=== PATIENT | female | born 1990 | race American Indian/Alaskan Native ===

== ENCOUNTER 2018-01-08 08:44 | Emergency (ER) | payer SELFPAY ==
[2018-01-08 09:08] VITALS: BP 126/55
[2018-01-08] MEDS ORDERED: MOTRIN PO ONE (12:38)
--- NOTE | 2018-01-08 12:40 | Emergency Department Report ---
Blank Doc - Documentation Documentation: Patient is a 27-year-old Portuguese female who is presenting with right-sided pleuritic chest discomfort. Patient states that the pain started as a general soreness and now has sharp pain whenever she breathes. Patient denies any recent cough cold congestion, nausea vomiting, or abdominal pain. Patient denies having any cold symptoms in the last month. Patient's had no long recent travel. The patient will be sent for chest x-ray and a d-dimer will be done as well rule out PE.
--- NOTE | 2018-01-08 13:06 | XRay Report ---
ROUTINE CHEST, TWO VIEWS: HISTORY: Pleuritic chest pain. The trachea, heart, mediastinal contour, lung mix and bony thorax are unremarkable. IMPRESSION: Unremarkable chest x-ray.
[2018-01-08 15:30] LABS: Basophils % (Auto) 0.2 % (0.0-1.8); Eosinophils # (Auto) 0.2 K/mm3 (0.0-0.4); Eosinophils % (Auto) 2.1 % (0.0-4.3); Hematocrit 35.6 % (30.3-42.9); Hemoglobin 11.4 gm/dl (10.1-14.3); Lymphocytes # (Auto) 2.8 K/mm3 (1.2-5.4); Lymphocytes % (Auto) 32.8 % (13.4-35.0); Mean Corpuscular HGB Conc 32 % (30-34); Mean Corpuscular Hemoglobin 27 pg (28-32); Mean Corpuscular Volume 84 fl (79-97); Monocytes # (Auto) 0.9 K/mm3 (0.0-0.8); Monocytes % (Auto) 10.6 % (0.0-7.3); Platelet Count 180 K/mm3 (140-440); Red Blood Count 4.22 M/mm3 (3.65-5.03); Red Cell Distribution Width 13.6 % (13.2-15.2)
[2018-01-08 15:40] LABS: BUN/Creatinine Ratio 16; Blood Urea Nitrogen 11 mg/dL (7-17); Calcium 8.7 mg/dL (8.4-10.2); Hemolysis Index 11
--- NOTE | 2018-01-08 16:33 | Emergency Department Report ---
ED General Adult HPI - General Chief complaint: Pain General Stated complaint: BERNY/SHARP PAIN UNDER RT RIB Time Seen by Provider: 01/08/18 12:30 Source: patient Mode of arrival: Ambulatory Limitations: No Limitations - History of Present Illness Initial comments: 27-year-old female past medical history eczema presents with complaint of 2 days of right-sided rib cage discomfort. Slightly worse when she takes deep breath. Patient is awake alert and oriented 3 fully lucid not in acute distress. Denies any personal history of PE or DVT. Denies any recent long distance travel. Pointing to the right side chest and states that it hurts when she touches it deeply or takes a deep breath. Denies any recent falls or trauma to this area. No reports of rash. Deneis any palpitation or rash on chest or flank. Onset/Timin -: days(s) Location: chest Severity scale (0 -10): 5 Quality: sharp Consistency: intermittent Improves with: none Worsens with: none Associated Symptoms: chest pain Treatments Prior to Arrival: none - Related Data Previous Rx's Medication Instructions Recorded Last Taken Type Triamcinolone 0.1% [Kenalog 0.1% 1 applic TP TID #1 tube 05/08/13 Unknown Rx CREAM] Triamcinolone 0.1% [Kenalog 0.1% 1 applic TP BID #80 gram 05/22/13 Unknown Rx CREAM] Amoxicillin/K Clav Tab [Augmentin 1 tab PO BID #20 tablet 06/20/13 Unknown Rx 875MG] HYDROcodone/APAP 5-325 [[place] 1 each PO Q6HR PRN #15 tablet 06/20/13 Unknown Rx 5/325 mg] Ibuprofen [Motrin 800 MG tab] 800 mg PO TID #30 tablet 06/20/13 Unknown Rx Mupirocin [Bactroban 2% Oint] 1 applic TP TID #22 gram 06/20/13 Unknown Rx Sulfamethoxazole/Trimethoprim 1 each PO BID #20 tablet 06/20/13 Unknown Rx [Bactrim DS] Triamcinolone 0.1% [Kenalog 0.1% 1 applic TP BID #80 gm 09/11/14 Unknown Rx CREAM] Ibuprofen [Motrin] 800 mg PO Q8HR PRN #20 tablet 01/08/18 Unknown Rx Allergies Allergy/AdvReac Type Severity Reaction Status Date / Time peanut Allergy Swelling Verified 01/08/18 09:03 ED Review of Systems ROS: Stated complaint: BERNY/SHARP PAIN UNDER RT RIB Other details as noted in HPI Constitutional: denies: chills, fever Eyes: denies: eye pain, eye discharge, vision change ENT: denies: ear pain, throat pain Respiratory: denies: cough, shortness of breath, wheezing Cardiovascular: chest pain. denies: palpitations Endocrine: no symptoms reported Gastrointestinal: denies: abdominal pain, nausea, diarrhea Genitourinary: denies: urgency, dysuria, discharge Musculoskeletal: denies: back pain, joint swelling, arthralgia Skin: denies: rash, lesions Neurological: denies: headache, weakness, paresthesias Psychiatric: denies: anxiety, depression Hematological/Lymphatic: denies: easy bleeding, easy bruising ED Past Medical Hx - Past Medical History Previous Medical History?: No Additional medical history: eczema - Surgical History Past Surgical History?: No - Social History Smoking Status: Never Smoker Substance Use Type: None - Medications Home Medications: Home Medications Medication Instructions Recorded Confirmed Last Taken Type Triamcinolone 0.1% [Kenalog 0.1% 1 applic TP TID #1 tube 05/08/13 Unknown Rx CREAM] Triamcinolone 0.1% [Kenalog 0.1% 1 applic TP BID #80 gram 05/22/13 Unknown Rx CREAM] Amoxicillin/K Clav Tab [Augmentin 1 tab PO BID #20 tablet 06/20/13 Unknown Rx 875MG] HYDROcodone/APAP 5-325 [[place] 1 each PO Q6HR PRN #15 tablet 06/20/13 Unknown Rx 5/325 mg] Ibuprofen [Motrin 800 MG tab] 800 mg PO TID #30 tablet 06/20/13 Unknown Rx Mupirocin [Bactroban 2% Oint] 1 applic TP TID #22 gram 06/20/13 Unknown Rx Sulfamethoxazole/Trimethoprim 1 each PO BID #20 tablet 06/20/13 Unknown Rx [Bactrim DS] Triamcinolone 0.1% [Kenalog 0.1% 1 applic TP BID #80 gm 09/11/14 Unknown Rx CREAM] Ibuprofen [Motrin] 800 mg PO Q8HR PRN #20 tablet 01/08/18 Unknown Rx ED Physical Exam - General Limitations: No Limitations General appearance: alert, in no apparent distress - Head Head exam: Present: atraumatic, normocephalic - Eye Eye exam: Present: normal appearance, PERRL, EOMI - ENT ENT exam: Present: mucous membranes moist - Neck Neck exam: Present: normal inspection - Respiratory Respiratory exam: Present: normal lung sounds bilaterally. Absent: respiratory distress - Cardiovascular Cardiovascular Exam: Present: regular rate, normal rhythm. Absent: systolic murmur, diastolic murmur, rubs, gallop - GI/Abdominal GI/Abdominal exam: Present: soft, normal bowel sounds - Extremities Exam Extremities exam: Present: normal inspection - Back Exam Back exam: Present: normal inspection - Neurological Exam Neurological exam: Present: alert, oriented X3 - Psychiatric Psychiatric exam: Present: normal affect, normal mood - Skin Skin exam: Present: warm, dry, intact, normal color. Absent: rash ED Course Vital Signs 01/08/18 09:04 Temperature 98.6 F Pulse Rate 77 Blood Pressure 126/55 O2 Sat by Pulse 98 Oximetry ED Medical Decision Making - Lab Data Result diagrams: 01/08/18 15:04 01/08/18 15:04 - Medical Decision Making A/P: Pleurisy, costochondritis 1-Motrin when necessary 2-follow-up with primary care 3-CT angio chest shows no discreet right lobe no discrete pneumonia or pneumothorax or pulmonary embolism 4-no ekg per Dr. Blandon Critical care attestation.: If time is entered above; I have spent that time in minutes in the direct care of this critically ill patient, excluding procedure time. ED Disposition Clinical Impression: Pleurisy, Costochondritis Disposition: - TO HOME OR SELFCARE Is pt being admited?: No Does the pt Need Aspirin: No Condition: Stable Instructions: Costochondritis (ED), Pleurisy (ED) Prescriptions: Ibuprofen [Motrin] 800 mg PO Q8HR PRN #20 tablet PRN Reason: Pain , Severe (7-10) Referrals: [facility] [Provider Group] - 3-5 Days [facility] [Provider Group] - 3-5 Days Forms: Work/School Release Form(ED) Time of Disposition: 17:42
--- NOTE | 2018-01-08 17:14 | Cat Scan Report ---
FINAL REPORT EXAM: CT ANGIO CHEST HISTORY: pleuritic hest pain + d-dimer TECHNIQUE: CT examination of the chest with IV contrast CT angiographic 2D and thick slab 3D image post-processing PRIORS: None. FINDINGS: Normal cardiac size without pericardial effusion. Intact normal caliber thoracic aorta. Normal-appearing esophagus. No hilar mass or mediastinal adenopathy. The visualized pulmonary arteries are diffusely patent bilaterally. There is no filling defect to suggest PE. No pneumothorax, pleural effusion, or focal pulmonary consolidation. No lung mass or nodule. No evidence of acute fracture. Slight linear scar versus atelectasis right middle lobe. IMPRESSION: Slight linear scar versus atelectasis right middle lobe No CT evidence of PE
== END 2018-01-08 17:48 | disposition home or self-care (01) ==
LOC: ED 08:44
DX: M94.0 Chondrocostal junction syndrome [Tietze] (principal); R09.1 Pleurisy; Z91.010 Allergy to peanuts
CPT/HCPCS: 36415; 71046; 71275; 80048; 84703; 85025; 85379; 99284; Q9967